=== PATIENT | male | born 2000 | race Caucasian/White ===

== ENCOUNTER 2020-07-31 20:20 | Emergency (ER) | payer OTHER ==
[~2020-07-31] VITALS: Ht 172.7 cm; Wt 95.3 kg
[~2020-07-31 20:20] MED LIST: KEFLEX250 MG PO; NOHOMEMEDICATIONS
[2020-07-31 21:14] LABS: URINE BILIRUBIN NEGATIVE (Negative); URINE BLOOD NEGATIVE (Negative); URINE CLARITY CLEAR; URINE COLOR YELLOW; URINE GLUCOSE-RANDOM* NEGATIVE (Negative); URINE KETONES NEGATIVE (Negative); URINE LEUKOCYTES-REFLEX NEGATIVE (Negative); URINE NITRITE-REFLEX NEGATIVE (Negative); URINE PROTEIN (DIPSTICK) NEGATIVE (Negative); URINE SPECIFIC GRAVITY >= 1.030 (1.005-1.035)
[2020-07-31] MEDS ORDERED: FLEXERIL PO (21:41)
[2020-07-31] MEDS ORDERED: NAPROSYN500 MG PO (21:41)
[2020-07-31 21:52] VITALS: BP 131/74
== END 2020-07-31 21:52 | disposition home or self-care (01) ==
LOC: ER 20:20
PROVIDERS: Emergency Medicine
DX: S29.012A Strain of muscle and tendon of back wall of thorax, initial encounter (principal); R35.0 Frequency of micturition; R11.0 Nausea; X58.XXXA Exposure to other specified factors, initial encounter; Y93.89 Activity, other specified; Y92.89 Other specified places as the place of occurrence of the external cause; Y99.8 Other external cause status

== ENCOUNTER 2021-01-08 12:54 | Emergency (ER) | payer OTHER ==
[~2021-01-08] VITALS: Ht 172.7 cm; Wt 108.9 kg
[~2021-01-08 12:54] MED LIST changes: +FLEXERIL PO; +NAPROSYN500 MG PO
[2021-01-08 13:35] LABS: URINE BILIRUBIN NEGATIVE (Negative); URINE BLOOD NEGATIVE (Negative); URINE CLARITY CLEAR; URINE COLOR YELLOW; URINE GLUCOSE-RANDOM* NEGATIVE (Negative); URINE KETONES NEGATIVE (Negative); URINE LEUKOCYTES-REFLEX NEGATIVE (Negative); URINE NITRITE-REFLEX NEGATIVE (Negative); URINE PROTEIN (DIPSTICK) NEGATIVE (Negative); URINE UROBILINOGEN 0.2 E.U./dl (0.2-1.0)
[2021-01-08 14:19] LABS: ABSOLUTE NEUTROPHILS 4.1 thou/uL (1.4-8.2); BASOPHILS 0.5 % (0.0-2.0); EOSINOPHILS 1.1 % (0.0-3.0); HEMATOCRIT 46.1 % (42.0-52.0); HEMOGLOBIN 15.8 gm/dL (14.0-18.0); LYMPHOCYTES 27.8 % (24.0-44.0); MCH 31.8 pg (26.0-34.0); MCHC 34.2 g/dL (28.0-37.0); MONOCYTES 6.9 % (1.0-8.0); PLATELET COUNT 254 thou/uL (150-400); POLYS 63.7 % (36.0-66.0); RBC 4.96 mil/uL (4.50-6.00); RDW 12.7 % (10.5-14.5); WBC 6.4 thou/uL (4.0-11.0)
[2021-01-08 14:26] LABS: CALCIUM 8.7 mg/dL (8.5-10.1); POTASSIUM 4.1 mmol/L (3.5-5.1)
[2021-01-08 14:32] LABS: TOTAL BILIRUBIN 0.3 mg/dL (0.2-1.0); TOTAL PROTEIN 7.4 g/dL (6.4-8.2)
[2021-01-08] MEDS ORDERED: MOBIC7.5 MG PO (14:37)
[2021-01-08 15:38] VITALS: BP 121/53
[2021-01-09] MEDS ORDERED: VIBRAMYCIN 100100 M2 PO (12:12)
== END 2021-01-08 15:39 | disposition home or self-care (01) ==
LOC: ER 12:54
PROVIDERS: Physician Assistant
DX: N43.3 Hydrocele, unspecified (principal); I86.1 Scrotal varices; N50.812 Left testicular pain